=== PATIENT | male | born 1935 | race Caucasian/White ===

== ENCOUNTER 2017-07-02 15:30 | Emergency (ER) | payer OTHER ==
[~2017-07-02] VITALS: Ht 172.7 cm; Wt 81.8 kg
[~2017-07-02 15:30] MED LIST: AMLO2.5T PO; ASPI1TAB; BENI1TAB PO; CARV25TA PO; CETI10TA PO; COUM1TAB17 PO; FURO40TA2 PO; K-TA10TA2 PO; META28.35 PO; PERC5TAB12 PO; SIMV20TA2 PO; TERA2CAP3 PO; TYLE325T5 PO; VITA-182 PO
[2017-07-02] MEDS ORDERED: SIMV40TA2 PO (15:54)
[2017-07-02] MEDS ORDERED: XANA0.5T PO (15:54)
[2017-07-02 17:53] LABS: BASO # 0.1 10^3/uL (0.0-0.2); BASO % 0.8 % (0.0-1.0); EOS # 0.4 10^3/uL (0.0-0.50); EOS % 6.2 % (0.0-3.0); IMMATURE GRANULOCYTE % 0.3 % (0-0); LYMPH % 32.8 % (24.0-44.0); MEAN CORPUSCULAR HEMOGLOBIN 30.1 pg (27.0-33.0); MEAN CORPUSCULAR HGB CONC 33.9 g/dl (32.0-36.5); MEAN CORPUSCULAR VOLUME 88.6 fl (80.0-96.0); MONO # 0.7 10^3/uL (0.0-0.8); MONO % 10.7 % (0.0-5.0); NEUTROPHILS % 49.2 % (36.0-66.0); PLATELET COUNT, AUTOMATED 189 10^3/uL (150-450); RED CELL DISTRIBUTION WIDTH 12.7 % (11.5-14.5); WHITE BLOOD COUNT 6.1 10^3/uL (4.0-10.0)
[2017-07-02 17:59] LABS: ALBUMIN 3.5 GM/DL (3.2-5.2); ALBUMIN/GLOBULIN RATIO 1.46 (1.00-1.93); ALKALINE PHOSPHATASE 50 U/L (45-117); ALT/SGPT 24 U/L (12-78); ANION GAP 5 MEQ/L (8-16); AST/SGOT 14 U/L (15-37); BILIRUBIN,DIRECT 0.1 MG/DL (0.0-0.2); BILIRUBIN,TOTAL 0.5 MG/DL (0.2-1.0); BLOOD UREA NITROGEN 15 MG/DL (7-18); CALCIUM LEVEL 8.3 MG/DL (8.8-10.2); CARBON DIOXIDE LEVEL 29 MEQ/L (21-32); CHLORIDE LEVEL 105 MEQ/L (98-107); CREATININE FOR GFR 0.96 MG/DL (0.70-1.30); GLOMERULAR FILTRATION RATE > 60.0 (>35); GLUCOSE, FASTING 111 MG/DL (83-110); POTASSIUM SERUM 3.8 MEQ/L (3.5-5.1); SODIUM LEVEL 139 MEQ/L (136-145); TOTAL PROTEIN 5.9 GM/DL (6.4-8.2)
--- NOTE | 2017-07-02 18:03 | REP ---
Chest one-view HISTORY: Chest pain Comparison: 05/03/2015 The lungs are clear. The heart is normal in size. The pulmonary vasculature is normal in appearance. Impression: No acute disease. Signed by Zach Kumar MD 07/02/2017 05:55 P
[2017-07-02 18:06] LABS: INR 1.09
[2017-07-02] MEDS ORDERED: LABETALOL HCL 100 MG/20 ML VIAL IV STA (21:04)
[2017-07-02] MEDS ORDERED: CARV12.5 PO (21:25)
[2017-07-02] MEDS ORDERED: WARF-23 PO (21:25)
[2017-07-02] MEDS ORDERED: WARFARIN SOD 5 MG TAB PO ONE (21:30)
[2017-07-02 22:02] VITALS: BP 139/79
--- NOTE | 2017-07-03 09:38 | ECGEPIP ---
Stationary ECG Study [facility] - ED Test Date: 2017-07-02 Pat Name: JACKY OLIVO Department: Room: - Gender: M Levi Maker: lambert : [id number] Requested By: Joce Otto Order Number: [id number] Reading MD: Teresa Catherine Measurements Intervals Powers Rate: 60 P: [place]: 0 QRS: 37 QRSD: 102 T: 5 QT: 440 QTc: 442 Interpretive Statements ATRIAL FIBRILLATION NONSPECIFIC T-WAVE ABNORMALITY ABNORMAL RHYTHM ECG Electronically Signed On 07-03-2017 9:38:17 EDT by Teresa Catherine
== END 2017-07-02 22:03 | disposition home or self-care (01) ==
LOC: M ED 15:30
DX: I48.91 Unspecified atrial fibrillation (principal); R00.1 Bradycardia, unspecified; Z87.891 Personal history of nicotine dependence

== ENCOUNTER 2023-04-27 19:35 | Inpatient (IN) | payer MEDICARE, OTHER ==
[~2023-04-27] VITALS: Ht 170.2 cm; Wt 81.9 kg
[~2023-04-27 19:35] MED LIST changes: -AMLO2.5T PO; +AMLO2.5T3 PO; -ASPI1TAB; +ASPI81TA26; -BENI1TAB PO; +CARV12.5 PO; -K-TA10TA2 PO; +OLME20TA55 PO; +POTA-165 PO; -SIMV20TA2 PO; +SIMV20TA22 PO; +SIMV40TA20 PO; +WARF-23 PO; +XANA0.5T PO
[2023-04-27] MEDS ORDERED: LASI40TA9 PO (19:45)
[2023-04-27] MEDS ORDERED: SIMV20TA22 PO (19:45)
[2023-04-27] MEDS ORDERED: ELIQ5TAB PO (19:46)
[2023-04-27] MEDS ORDERED: ONDANSETRON 4MG 2ML VIAL IV ONE (20:20)
[2023-04-27 20:22] LABS: BASO % 0.4 % (0.0-1.0); EOS # 0.2 10^3/uL (0.0-0.5); EOS % 1.9 % (0.0-3.0); HEMATOCRIT 46.4 % (42.0-52.0); LYMPH # 1.1 10^3/uL (1.5-5.0); LYMPH % 10.9 % (24.0-44.0); MEAN CORPUSCULAR HEMOGLOBIN 29.9 pg (27.0-33.0); MEAN CORPUSCULAR HGB CONC 34.5 g/dl (32.0-36.5); MEAN CORPUSCULAR VOLUME 86.6 fl (80.0-96.0); MONO # 0.8 10^3/uL (0.0-0.8); MONO % 7.5 % (2.0-8.0); NEUTROPHILS # 8.1 10^3/uL (1.5-8.5); NEUTROPHILS % 78.9 % (36.0-66.0); PLATELET COUNT, AUTOMATED 222 10^3/uL (150-450); RED BLOOD COUNT 5.36 10^6/uL (4.30-6.10); WHITE BLOOD COUNT 10.2 10^3/uL (4.0-10.0)
[2023-04-27] MEDS: MORPHINE 2 MG/ML 1ML VIAL IV PRN ×2 (20:32→23:36)
[2023-04-27 20:34] LABS: INR 1.11
[2023-04-27 20:35] LABS: PARTIAL THROMBOPLASTIN TIME 36.9 SECONDS (24.8-34.2)
[2023-04-27] MEDS ORDERED: ISOVUE-370 76% 100ML VIAL As Ordered ONE (20:43)
[2023-04-27 20:46] LABS: CK-MB VALUE MASS 3.8 NG/ML (<3.6)
[2023-04-27 20:47] LABS: LIPASE 34 U/L (12-53)
[2023-04-27 20:48] LABS: CPK CREATINE PHOSPHOKINASE 156 U/L (46-171); MB/CK RELATIVE INDEX 2.43 (< OR =4)
[2023-04-27 20:49] LABS: ALBUMIN 4.4 G/DL (3.2-5.2); ALKALINE PHOSPHATASE 69 U/L (46-116); ALT/SGPT 22 U/L (7.0-40); AST/SGOT 17 U/L (<34); BILIRUBIN,DIRECT 0.3 MG/DL (<0.4); BILIRUBIN,TOTAL 0.9 MG/DL (0.3-1.2); BLOOD UREA NITROGEN 13 MG/DL (9-23); CALCIUM LEVEL 9.7 MG/DL (8.3-10.6); CARBON DIOXIDE LEVEL 32 MMOL/L (20-31); CHLORIDE LEVEL 97 MMOL/L (98-107); CREATININE FOR GFR 0.96 MG/DL (0.70-1.30); GLOMERULAR FILTRATION RATE > 60.0 (>35); GLUCOSE, FASTING 173 MG/DL (74-106); POTASSIUM SERUM 3.6 MMOL/L (3.5-5.1); SODIUM LEVEL 139 MMOL/L (136-145); TOTAL PROTEIN 7.3 G/DL (5.7-8.2)
[2023-04-27 20:50] LABS: THYROID STIMULATING HORMONE 3.074 uIU/ML (0.55-4.78)
[2023-04-27 22:00] LABS: CK-MB VALUE MASS 2.1 NG/ML (<3.6)
[2023-04-27 22:01] LABS: MB/CK RELATIVE INDEX 1.6 (< OR =4)
[2023-04-27 22:04] LABS: RSV AMPLIFICATION NEGATIVE (NEGATIVE)
[2023-04-27] MEDS ORDERED: GLUCOSE 4GM CHEW TABLET PO PRN (23:50)
[2023-04-27] MEDS ORDERED: GLUCAGON INJ 1MG VIAL SC PRN (23:50)
[2023-04-27] MEDS ORDERED: DEXTROSE 50% 50ML SYRINGE IV PRN (23:50)
[2023-04-27] MEDS ORDERED: ONDANSETRON 4MG 2ML VIAL IV PRN (23:50)
[2023-04-27] MEDS ORDERED: HYDROMORPHONE HCL 0.5 MG/ 0.5 ML SYRINGE IV PRN ×2 (23:50)
[2023-04-28] MEDS: LR 1,000 ML IV SCH ×4 (00:31→22:33)
[2023-04-28] MEDS ORDERED: SIMV-254 PO (00:37)
[2023-04-28] MEDS ORDERED: VITA100093 PO (00:37)
[2023-04-28] MEDS ORDERED: CARV25TA PO (00:37)
[2023-04-28] MEDS ORDERED: OLME40TA PO (00:37)
[2023-04-28] MEDS ORDERED: HOME MED LIST COMPLETE! XX SCH (00:40)
[2023-04-28] MEDS: ENOXAPARIN 80MG/0.8ML SYRINGE (J1650 PER 10MG) SC SCH ×4 (01:25→21:51)
[2023-04-28 06:58] LABS: HEMATOCRIT 44.3 % (42.0-52.0); HEMOGLOBIN 15.1 g/dl (13.5-17.5); MEAN CORPUSCULAR HEMOGLOBIN 29.7 pg (27.0-33.0); MEAN CORPUSCULAR HGB CONC 34.1 g/dl (32.0-36.5); PLATELET COUNT, AUTOMATED 196 10^3/uL (150-450); RED BLOOD COUNT 5.09 10^6/uL (4.30-6.10); WHITE BLOOD COUNT 10.4 10^3/uL (4.0-10.0)
[2023-04-28 07:23] LABS: ALBUMIN 3.6 G/DL (3.2-5.2); ALKALINE PHOSPHATASE 61 U/L (46-116); ALT/SGPT 17 U/L (7.0-40); AST/SGOT 13 U/L (<34); BILIRUBIN,TOTAL 0.9 MG/DL (0.3-1.2); BLOOD UREA NITROGEN 13 MG/DL (9-23); CARBON DIOXIDE LEVEL 31 MMOL/L (20-31); CHLORIDE LEVEL 99 MMOL/L (98-107); GLOMERULAR FILTRATION RATE > 60.0 (>35); GLUCOSE, FASTING 163 MG/DL (74-106); POTASSIUM SERUM 3.5 MMOL/L (3.5-5.1); SODIUM LEVEL 138 MMOL/L (136-145); TOTAL PROTEIN 6.3 G/DL (5.7-8.2)
[2023-04-28] MEDS: INSULIN LISPRO (NovoLOG) PER UNIT SC SCH ×3 (07:55→17:30)
[2023-04-28] MEDS: PANTOPRAZOLE 40MG VIAL IV SCH (07:58)
[2023-04-28] MEDS ORDERED: MORPHINE 2 MG/ML 1ML VIAL IV PRN ×2 (09:35)
[2023-04-28 15:30] VITALS: BP 135/79; TEMP 97.3; O2SAT 95
[2023-04-28 18:00] VITALS: BP 150/79; TEMP 97.9; O2SAT 95
[2023-04-28 21:15] VITALS: BP 138/81; TEMP 97.9; O2SAT 93
[2023-04-29 02:00] VITALS: BP 152/84; TEMP 97.9; O2SAT 97
[2023-04-29 06:00] VITALS: BP 160/82; TEMP 97.7; O2SAT 95
[2023-04-29 06:28] LABS: HEMATOCRIT 41.3 % (42.0-52.0); HEMOGLOBIN 13.8 g/dl (13.5-17.5); MEAN CORPUSCULAR HEMOGLOBIN 29.3 pg (27.0-33.0); MEAN CORPUSCULAR HGB CONC 33.4 g/dl (32.0-36.5); MEAN CORPUSCULAR VOLUME 87.7 fl (80.0-96.0); PLATELET COUNT, AUTOMATED 175 10^3/uL (150-450); RED BLOOD COUNT 4.71 10^6/uL (4.30-6.10); WHITE BLOOD COUNT 9.3 10^3/uL (4.0-10.0)
[2023-04-29] MEDS: LR 1,000 ML IV SCH ×3 (06:32→22:49)
[2023-04-29 06:52] LABS: ALBUMIN 3.2 G/DL (3.2-5.2); ALKALINE PHOSPHATASE 54 U/L (46-116); ALT/SGPT 13 U/L (7.0-40); AST/SGOT 12 U/L (<34); BILIRUBIN,TOTAL 1.1 MG/DL (0.3-1.2); BLOOD UREA NITROGEN 11 MG/DL (9-23); CALCIUM LEVEL 8.2 MG/DL (8.3-10.6); CARBON DIOXIDE LEVEL 30 MMOL/L (20-31); CHLORIDE LEVEL 105 MMOL/L (98-107); CREATININE FOR GFR 0.87 MG/DL (0.70-1.30); GLOMERULAR FILTRATION RATE > 60.0 (>35); GLUCOSE, FASTING 131 MG/DL (74-106); POTASSIUM SERUM 3.5 MMOL/L (3.5-5.1); SODIUM LEVEL 142 MMOL/L (136-145); TOTAL PROTEIN 5.5 G/DL (5.7-8.2)
[2023-04-29] MEDS: INSULIN LISPRO (NovoLOG) PER UNIT SC SCH ×3 (07:30→17:13)
[2023-04-29] MEDS ORDERED: PREVNAR-20 VACCINE 0.5ML SYRINGE IM.IMMUN ONE (09:00)
[2023-04-29] MEDS: PANTOPRAZOLE 40MG VIAL IV SCH (09:00)
[2023-04-29 10:00] VITALS: BP 164/84; TEMP 98.4; O2SAT 91
[2023-04-29] MEDS: ENOXAPARIN 80MG/0.8ML SYRINGE (J1650 PER 10MG) SC SCH ×2 (10:04→19:43)
[2023-04-29 14:00] VITALS: BP 163/85; TEMP 98.2; O2SAT 91
[2023-04-29 21:21] VITALS: BP 169/93; TEMP 98.8; O2SAT 94
[2023-04-30] VITALS (7 sets, daily range): BP systolic 149–204; BP diastolic 61–89; TEMP 96–99; O2SAT 93–96
[2023-04-30] MEDS ORDERED: amLODIPine 5 MG TAB PO ONE (02:10)
[2023-04-30 05:52] LABS: HEMOGLOBIN 13.7 g/dl (13.5-17.5); MEAN CORPUSCULAR HEMOGLOBIN 29.3 pg (27.0-33.0); MEAN CORPUSCULAR HGB CONC 33.4 g/dl (32.0-36.5); MEAN CORPUSCULAR VOLUME 87.6 fl (80.0-96.0); PLATELET COUNT, AUTOMATED 180 10^3/uL (150-450); RED BLOOD COUNT 4.68 10^6/uL (4.30-6.10); WHITE BLOOD COUNT 9.2 10^3/uL (4.0-10.0)
[2023-04-30 06:19] LABS: ALBUMIN 3.3 G/DL (3.2-5.2); ALKALINE PHOSPHATASE 54 U/L (46-116); ALT/SGPT 12 U/L (7.0-40); AST/SGOT 18 U/L (<34); BILIRUBIN,TOTAL 1.6 MG/DL (0.3-1.2); BLOOD UREA NITROGEN 10 MG/DL (9-23); CALCIUM LEVEL 8.1 MG/DL (8.3-10.6); CARBON DIOXIDE LEVEL 27 MMOL/L (20-31); CHLORIDE LEVEL 104 MMOL/L (98-107); CREATININE FOR GFR 0.78 MG/DL (0.70-1.30); GLOMERULAR FILTRATION RATE > 60.0 (>35); GLUCOSE, FASTING 122 MG/DL (74-106); POTASSIUM SERUM 3.4 MMOL/L (3.5-5.1); SODIUM LEVEL 139 MMOL/L (136-145); TOTAL PROTEIN 5.8 G/DL (5.7-8.2)
[2023-04-30] MEDS: INSULIN LISPRO (NovoLOG) PER UNIT SC SCH ×3 (07:30→16:31)
[2023-04-30] MEDS: LR 1,000 ML IV SCH ×3 (08:30→21:41)
[2023-04-30] MEDS: ENOXAPARIN 80MG/0.8ML SYRINGE (J1650 PER 10MG) SC SCH ×2 (09:53→20:18)
[2023-04-30] MEDS: MIRALAX *UNIT DOSE* 17GM PACKET PO SCH (09:53)
[2023-04-30] MEDS: PANTOPRAZOLE 40MG VIAL IV SCH (09:53)
[2023-04-30] MEDS: KCL 10MEQ/100ML SWI (KRUN) 10 MEQ in IV 1 EA IV SCH ×4 (16:29→20:17)
[2023-04-30] MEDS: CARVedilol 12.5 MG TAB PO SCH ×2 (17:08→17:13)
[2023-04-30] MEDS: TERAZOSIN 1 MG CAP PO SCH (20:18)
[2023-04-30] MEDS ORDERED: CETIRIZINE (ZyrTEC) 10 MG TAB PO SCH (21:00)
[2023-04-30] MEDS ORDERED: SIMVASTATIN 40 MG TAB PO SCH (21:00)
[2023-05-01 02:00] VITALS: BP 118/62; TEMP 98.1; O2SAT 94
[2023-05-01 05:50] VITALS: BP 150/64; TEMP 98.1; O2SAT 96
[2023-05-01 06:17] LABS: ALBUMIN 3.3 G/DL (3.2-5.2); ALKALINE PHOSPHATASE 50 U/L (46-116); ALT/SGPT 17 U/L (7.0-40); AST/SGOT 23 U/L (<34); BILIRUBIN,DIRECT 0.7 MG/DL (<0.4); BILIRUBIN,TOTAL 1.6 MG/DL (0.3-1.2); BLOOD UREA NITROGEN 10 MG/DL (9-23); CALCIUM LEVEL 8.2 MG/DL (8.3-10.6); CARBON DIOXIDE LEVEL 24 MMOL/L (20-31); CHLORIDE LEVEL 105 MMOL/L (98-107); CREATININE FOR GFR 0.79 MG/DL (0.70-1.30); GLOMERULAR FILTRATION RATE > 60.0 (>35); GLUCOSE, FASTING 115 MG/DL (74-106); POTASSIUM SERUM 3.8 MMOL/L (3.5-5.1); SODIUM LEVEL 138 MMOL/L (136-145); TOTAL PROTEIN 5.8 G/DL (5.7-8.2)
[2023-05-01] MEDS: LR 1,000 ML IV SCH (06:39)
[2023-05-01] MEDS ORDERED: VITAMIN D 1,000 INTERNATIONAL UNITS TABLET PO SCH (09:00)
[2023-05-01] MEDS: ENOXAPARIN 80MG/0.8ML SYRINGE (J1650 PER 10MG) SC SCH (09:32)
[2023-05-01] MEDS: PANTOPRAZOLE 40MG VIAL IV SCH (09:32)
[2023-05-01 09:33] VITALS: BP 152/66
[2023-05-01] MEDS: MIRALAX *UNIT DOSE* 17GM PACKET PO SCH (09:33)
[2023-05-01] MEDS: TERAZOSIN 1 MG CAP PO SCH (09:33)
[2023-05-01] MEDS: CARVedilol 12.5 MG TAB PO SCH (09:33)
[2023-05-01 10:00] VITALS: BP 150/67; TEMP 97.3; O2SAT 96
[2023-05-01] MEDS ORDERED: MIRA1POW3 PO (12:45)
== END 2023-05-01 14:37 | disposition home or self-care (01) | DRG 389 ==
LOC: M ED 19:35 → M ED INP 23:23 → M MSPAV 04-28 15:27
PROVIDERS: ADMIT Internal Medicine; ATTEND Internal Medicine
DX: K56.50 Intestinal adhesions [bands], unspecified as to partial versus complete obstruction (principal); I48.20 Chronic atrial fibrillation, unspecified; I10 Essential (primary) hypertension; N40.0 Benign prostatic hyperplasia without lower urinary tract symptoms; E87.6 Hypokalemia; E78.5 Hyperlipidemia, unspecified; K21.9 Gastro-esophageal reflux disease without esophagitis; Z85.72 Personal history of non-Hodgkin lymphomas; Z92.3 Personal history of irradiation; Z92.21 Personal history of antineoplastic chemotherapy; Z85.038 Personal history of other malignant neoplasm of large intestine; Z79.899 Other long term (current) drug therapy; Z79.01 Long term (current) use of anticoagulants; Z88.1 Allergy status to other antibiotic agents; Z88.8 Allergy status to other drugs, medicaments and biological substances

== ENCOUNTER → 2024-11-16 | Outpatient (CLI) | payer MEDICARE ==
[~2024-11-16] MED LIST changes: +ELIQ5TAB PO; +LASI40TA9 PO; +MIRA33506 PO; +OLME40TA PO; +SIMV-254 PO; +VITA100093 PO
== END ==
LOC: M PLAIMG 15:22 → M RAD 15:22
PROVIDERS: ATTEND Family Medicine
DX: J18.9 Pneumonia, unspecified organism (principal); J98.11 Atelectasis; J47.9 Bronchiectasis, uncomplicated; I51.7 Cardiomegaly; I25.10 Atherosclerotic heart disease of native coronary artery without angina pectoris

== ENCOUNTER → 2025-01-20 | Outpatient (CLI) | payer MEDICARE | LOC: M RAD 08:48 | PROVIDERS: ATTEND Family Medicine | DX: I10 Essential (primary) hypertension (principal); N28.1 Cyst of kidney, acquired ==